=== PATIENT | female | born 1990 | race African-American/Black ===

== ENCOUNTER → 2017-05-24 | Outpatient (CLI) | payer SELFPAY ==
--- NOTE | 2017-05-24 10:07 | US ---
EXAMINATION TYPE: US OB <= 14 wk fetus DATE OF EXAM: 05/24/2017 COMPARISON: NONE CLINICAL HISTORY: Z36 Confirm dates. Confirm dates, 4, para 3, history of EXAM PERFORMED: Transabdominal (TA) EXAM MEASUREMENTS: GESTATIONAL AGE / DATING Physician Established: Not established yet Dates by LMP: (11 weeks/0 days) EDC: 12/13/2017 Dates by First Scan: This is 1st scan Dates by Current Scan for: (11 weeks/0 days) EDC: 12/13/2017 MATERNAL ANATOMY Uterus: 13.1 x 6.0 x 7.0cm, anteverted, heterogeneous Right Ovary: 3.4 x 2.3 x 2.6cm Left Ovary: 2.3 x 2.0 x 1.9cm Post CDS / Adnexa: wnl Presence of free fluid: no Presence of corpus luteal cyst: not seen at this time Presence of subchorionic bleed: no GESTATION / SURVEY CRL: 4.1cm (11 weeks/0 days) Yolk Sac (normal less than 6mm): not seen at this time Heart Rate: 162 bpm Rhythm: Normal IUP: Viable IUP Nuchal Translucency 10-14wks (normal less than 3mm): unable to obtain due to lie Date of LMP: 03/08/2017 Beta HcG (if available): Not available at time of exam IMPRESSION: Viable single IUP measuring 11 weeks 0 days with a heart rate of 162bpm and an estimated delivery mac e of 12/13/2017.
== END | disposition home or self-care (01) ==
LOC: RADUSWWP 09:24
PROVIDERS: ATTEND Obstetrics & Gynecology
DX: Z63.9 Problem related to primary support group, unspecified (principal); Z3A.11 11 weeks gestation of pregnancy
CPT/HCPCS: 76801

== ENCOUNTER → 2017-07-31 | Outpatient (CLI) | payer OTHER ==
--- NOTE | 2017-07-31 10:50 | US ---
EXAMINATION TYPE: US OB anatomy transabd DATE OF EXAM: 07/31/2017 COMPARISON: 05/24/2017 HISTORY: Large for dates O36.62X0 Anatomy TECHNIQUE: Transabdominal (TA) EXAM MEASUREMENTS: GESTATIONAL AGE / DATING Dates by First Scan: (20 weeks/5 days) EDC: 12/13/2017 Dates by Current Scan for: (20 weeks/4 days) EDC: 12/14/2017 SURVEY IUP: Single PLACENTA: Anterior PREVIA: No previa LORENA: 18.8 cm Normal CERVICAL LENGTH (transabdominal: norm > 3.0cm): 4.5 cm BIOMETRY PRESENTATION: Vertex LIE: Longitudinal BPD: 4.9 cm 20 weeks / 5 days HC: 17.9 cm 20 weeks / 2 days AC: 15.0 cm 20 weeks / 2 days FL: 3.5 cm 21 weeks / 0 days ESTIMATED WEIGHT IN GRAMS: 360.8 grams ESTIMATED WEIGHT IN LBS/OZ: 0 lbs. 13 oz. WEIGHT PERCENTAGE BASED ON ESTABLISHED DATE: 35.6 % HC/AC: 1.2 Normal FL/AC: 23.1 HEART RATE: 151 bpm RHYTHM: Normal ANATOMY SEEN (within normal limits): * Lateral Vent (< 1 cm) 0.6 cm * Cisterna Magna (< 1.1 cm) 0.3 cm * Nuchal Fold (< 0.6 cm) 0.4 cm * Cerebellum (varies with age) 2.0 cm Choroid Plexus (bilateral) Midline Falx Cavus Septi Pellucidi Four Chamber Heart Outflow tracts: LVOT/RVOT Stomach Situs Nose / Lips Diaphragm Kidneys (bilateral) Bladder Cord Insert Three Vessel Cord Longitudinal Spine Transverse Spine Arms (bilateral) Legs (bilateral) ANATOMY SEEN (does not appear within normal limits): ANATOMY NOT SEEN: Live single IUP measuring 20 weeks 4 days. IMPRESSION: Single live intrauterine with a sonographic age of 20 weeks and 4 days and estimated date o f delivery of 12/14/2017, concordant with menstrual age.
== END | disposition home or self-care (01) ==
LOC: RADUSWWP 09:28
PROVIDERS: ATTEND Obstetrics & Gynecology
DX: O36.62X0 Maternal care for excessive fetal growth, second trimester, not applicable or unspecified (principal); Z3A.20 20 weeks gestation of pregnancy
CPT/HCPCS: 76811

== ENCOUNTER 2017-10-24 11:09 | Outpatient (CLI) | payer OTHER ==
[2017-10-24 11:42] LABS: Glucose,Whole Blood 81 mg/dL (75-99)
[2017-10-24 12:05] VITALS: BP 115/61; PULSE 82; RESP 16; TEMP 98.2
--- NOTE | 2017-10-24 13:13 | US ---
EXAMINATION TYPE: US OB BPP wo non-stress DATE OF EXAM: 10/24/2017 COMPARISON: US 07/31/2017 CLINICAL HISTORY: Non-reassuring NST. EXAM PERFORMED: Transabdominal (TA) BPP PARAMETERS: PRESENTATION: Vertex LIE: Transverse with head maternal Left?? HEART RATE: 139 bpm RHYTHM: Normal LORENA: 12.4 cm DIAPHRAGM IMAGED: Yes BPP SCORIN. Breathin (1 episode of breathing of 30 second duration in 30 minutes of scanning time) 2. Movement: 2 (at least 3 discrete body movements in 30 minutes) 3. Tone: 2 (1 episode of active flexion/extension of limb) 4. LORENA: 2 (LORENA index > 5cm) TOTAL SCORE: 8 / 8 IMPRESSION: Biophysical profile score of 8/8. Amniotic fluid index is within normal limits. Heart rat e is also within normal limits measuring 139 8/m.
--- NOTE | 2017-10-25 05:56 | P.MSEPDOC ---
Presenting Problems - Arrival Data Date of Arrival on Unit: 10/24/17 Time of Arrival on Unit: 11:09 Mode of Transport: Portable - Complaint OB-Reason for Admission/Chief Complaint: NST Comment: Pt sent from office s/p non-reassuring NST. (Decel noted). HX of GBM. Dr. Sparks aware and telephone orders received prior to pt's arrival. Accucheck = 81. Medical History - Information : 4 Para: 3 Term: 3 : 0 Abortions: Spontaneous or Elective: 0 Number of Living Children: 3 - Gestational Age Gestational Age by MATTHEW (wks/days): 32 Weeks and 6 Days - History Complications: GDM Review of Systems - Review of Systems Constitutional: No problems Breast: No problems ENT: No problems Cardiovascular: No problems Respiratory: No problems Gastrointestinal: No problems Genitourinary: No problems Musculoskeletal: No problems Neurological: No problems Skin: No problems Vital Signs - Temperature Temperature: 98.2 F Temperature Source: Oral - Pulse Right Brachial Pulse Rate: 82 Pulse Assessment Method: Automatic Cuff - Respirations Respiratory Rate: 16 Oxygen Delivery Method: Room Air - Blood Pressure Right Arm Blood Pressure: 115/61 Blood Pressure Mean: 79 Blood Pressure Source: Automatic Cuff Medical Screen Scoring (Pre) - Cervical Exam Dilation: Exam Deferred Effacement: Exam Deferred - Uterine Contractions Frequency: > 5 minutes apart = 1 Duration: N/A Intensity: N/A - Maternal Vital Signs Maternal Temperature: N/A Maternal Blood Pressure: N/A Signs of Preeclampsia: N/A Maternal Respirations: N/A - Pain Assessment Pain Scale Used: Numeric (1 - 10) Pain Intensity: 0 - Maternal Trauma Maternal Trauma: N/A - Assessment Baseline FHR: 150 Heart Rate - NICHD Category: Category III (Abnormal) = 12 NST: Non-reactive = 3 - Total Score Total Score (Pre): 16 - Level of Risk Level of Risk: High (10+) Physician Notification (Pre) - Physician Notified Physician Notified Date: 10/24/17 I agree with the RN Medical Screening Exam: Yes Risk & Benefit of care provided described in d/c instruction: Yes Diagnosis: RELATED CONDITIONS, UNSPECIFIED, THIRD TRIMESTER
== END 2017-10-24 11:42 | disposition home or self-care (01) ==
LOC: FBPOP 11:09
PROVIDERS: ATTEND Obstetrics & Gynecology
DX: O26.93 Pregnancy related conditions, unspecified, third trimester (principal); Z3A.32 32 weeks gestation of pregnancy
CPT/HCPCS: 59025; 76819; G0463; 99213

== ENCOUNTER 2017-10-25 00:01 | Outpatient (CLI) | payer OTHER ==
[2017-10-25 01:58] VITALS: BP 127/67; PULSE 92; RESP 18; TEMP 96.3
--- NOTE | 2017-10-25 05:50 | P.MSEPDOC ---
Presenting Problems - Arrival Data Date of Arrival on Unit: 10/25/17 Time of Arrival on Unit: 00:00 Mode of Transport: Ambulatory - Complaint OB-Reason for Admission/Chief Complaint: Decreased Movement Medical History - Information : 4 Para: 3 Term: 3 : 0 Abortions: Spontaneous or Elective: 0 Number of Living Children: 3 - Gestational Age Gestational Age by MATTHEW (wks/days): 33 Weeks and 0 Days - History Complications: Prior , Smoker Review of Systems - Review of Systems Constitutional: No problems Breast: No problems ENT: No problems Cardiovascular: No problems Respiratory: No problems Gastrointestinal: No problems Genitourinary: No problems Musculoskeletal: No problems Neurological: No problems Skin: No problems Vital Signs - Temperature Temperature: 96.3 F Temperature Source: Temporal Artery Scan - Pulse Right Brachial Pulse Rate: 92 Pulse Assessment Method: Automatic Cuff - Respirations Respiratory Rate: 18 Oxygen Delivery Method: Room Air O2 Sat by Pulse Oximetry: 99 - Blood Pressure Right Arm Blood Pressure: 127/67 Blood Pressure Mean: 87 Blood Pressure Source: Automatic Cuff Medical Screen Scoring (Pre) - Cervical Exam Dilation: Exam Deferred Effacement: Exam Deferred Membranes: Intact - Uterine Contractions Frequency: N/A Duration: N/A Intensity: N/A - Maternal Vital Signs Maternal Temperature: N/A Maternal Blood Pressure: N/A Signs of Preeclampsia: N/A Maternal Respirations: N/A - Pain Assessment Pain Scale Used: Numeric (1 - 10) Pain Intensity: 0 - Assessment Baseline FHR: 140 NST: Non-reactive = 3 Position: N/A Station: N/A - Total Score Total Score (Pre): 3 - Level of Risk Level of Risk: Low (0-5) Physician Notification (Pre) - Physician Notified Physician Notified Date: 10/25/17 Physician Notified Time: 01:08 Physician/Practitioner Notifed:: Dr. Sparks Spoke With: Dr. Sparks New Order Received: Yes - Notification Comment Comment: Dr. Sparks called, given report of pt c/o of decreased FM. Movement noted audibly/visuably. NR NST after [address] Sparks reviewed strip. Orders recieved to keep pt in triage and observe until am. pt may eat and to insert Heplock IV I agree with the RN Medical Screening Exam: Yes Risk & Benefit of care provided described in d/c instruction: Yes Diagnosis: DECREASED MOVEMENTS, UNSP TRIMESTER, UNSP
== END 2017-10-25 05:40 | disposition home or self-care (01) ==
LOC: FBPOP 00:01
PROVIDERS: ATTEND Obstetrics & Gynecology
DX: O36.8130 Decreased fetal movements, third trimester, not applicable or unspecified (principal); O99.333 Smoking (tobacco) complicating pregnancy, third trimester; Z3A.33 33 weeks gestation of pregnancy
CPT/HCPCS: 59025; G0463; 99213

== ENCOUNTER 2017-11-22 09:54 | Outpatient (CLI) | payer MEDICARE, OTHER ==
[2017-11-22 10:23] LABS: Glucose,Whole Blood 90 mg/dL (75-99)
--- NOTE | 2017-11-22 11:48 | US ---
EXAMINATION TYPE: US OB >= 14 wk fetus third trimester DATE OF EXAM: 11/22/2017 COMPARISON: Most recent ultrasound July 31, 2017 CLINICAL HISTORY: Decel in FHT Deceleration in FHT, gestational diabetes TECHNIQUE: Transabdominal (TA) GESTATIONAL AGE / DATING Physician Established: (37 weeks/0 days) EDC: 12/13/17 Dates by LMP: LMP unknown Dates by First Scan: (37 weeks/0 days) EDC: 12/13/17 Dates by Current Scan: (36 weeks/5 days) EDC: 12/15/17 SURVEY IUP: Single PLACENTA: Anterior PREVIA: No Previa LORENA: 9.5 cm Normal CERVICAL LENGTH (transabdominal: norm > 3.0cm): 3.8 cm BIOMETRY PRESENTATION: Vertex LIE: Longitudinal BPD: 9.0 cm 36 weeks / 3 days HC: 33.1 cm 37 weeks / 5 days AC: 33.0 cm 37 weeks / 0 days FL: 7.2 cm 36 weeks / 6 days ESTIMATED WEIGHT IN GRAMS: 3077 grams ESTIMATED WEIGHT IN LBS/OZ: 6 lbs. 13 oz. WEIGHT PERCENTAGE BASED ON ESTABLISHED DATES: 55.1% HC/AC: 1.00 Normal FL/AC: 21.79 Normal HEART RATE: 133 bpm RHYTHM: Normal Single viable IUP 36wks/5days with MATTHEW of 12/15/17 Single live intrauterine gestation is redemonstrated. Normal cephalad presentation is seen. Cervix is not effaced. Amniotic fluid index is lower limits of normal. biometry measurements are congrue nt and felt within normal limits. IMPRESSION: As above
--- NOTE | 2017-11-22 11:49 | US ---
EXAMINATION TYPE: US OB BPP wo non-stress DATE OF EXAM: 11/22/2017 COMPARISON: Prior study October 24, 2017 CLINICAL HISTORY: FHT Decel. Deceleration in FHT, gestational diabetes EXAM PERFORMED: Transabdominal (TA) BPP PARAMETERS: PRESENTATION: Vertex LIE: Longitudinal?? HEART RATE: 135 bpm RHYTHM: Normal LORENA: 9.9cm DIAPHRAGM IMAGED: yes BPP SCORIN. Breathin (1 episode of breathing of 30 second duration in 30 minutes of scanning time) 2. Movement: 2 (at least 3 discrete body movements in 30 minutes) 3. Tone: 2 (1 episode of active flexion/extension of limb) 4. LORENA: 2 (LORENA index > 5cm) TOTAL SCORE: 8 / 8 Biophysical profile scored within normal limits during real-time scanning.
[2017-11-22 13:13] VITALS: BP 127/75; PULSE 86; RESP 16; TEMP 95.7
--- NOTE | 2017-11-22 16:38 | P.MSEPDOC ---
Presenting Problems - Arrival Data Date of Arrival on Unit: 11/22/17 Time of Arrival on Unit: 09:55 Mode of Transport: Ambulatory - Complaint OB-Reason for Admission/Chief Complaint: NST Medical History - Information : 4 Para: 3 Term: 3 : 0 Abortions: Spontaneous or Elective: 0 Number of Living Children: 3 - Gestational Age Gestational Age by MATTHEW (wks/days): 37 Weeks and 0 Days - History Complications: GDM, Prior Review of Systems - Review of Systems Constitutional: No problems Breast: No problems ENT: No problems Cardiovascular: No problems Respiratory: No problems Gastrointestinal: No problems Genitourinary: No problems Musculoskeletal: No problems Neurological: No problems Skin: No problems Vital Signs - Temperature Temperature: 95.7 F Temperature Source: Tympanic - Pulse Right Brachial Pulse Rate: 86 Pulse Assessment Method: Automatic Cuff - Respirations Respiratory Rate: 16 Oxygen Delivery Method: Room Air - Blood Pressure Right Arm Blood Pressure: 127/75 Blood Pressure Mean: 92 Blood Pressure Source: Automatic Cuff Medical Screen Scoring (Pre) - Cervical Exam Dilation: Exam Deferred Membranes: Intact - Uterine Contractions Frequency: N/A Duration: N/A Intensity: N/A - Maternal Vital Signs Maternal Temperature: N/A Maternal Blood Pressure: N/A Signs of Preeclampsia: N/A Maternal Respirations: N/A - Pain Assessment Pain Scale Used: Numeric (1 - 10) Pain Intensity: 0 Pain Management Goal: 0 - Assessment Baseline FHR: 135 Heart Rate - NICHD Category: Category I (Normal) = 0 NST: Reactive Position: N/A Station: N/A - Total Score Total Score (Pre): 0 - Level of Risk Level of Risk: N/A Physician Notification (Pre) - Physician Notified Physician Notified Date: 11/22/17 Physician Notified Time: 11:57 Physician/Practitioner Notifed:: Dr. Sparks Spoke With: Dr. Sparks New Order Received: Yes - Notification Comment Comment: d/c home Disposition - Disposition OB Disposition: Discharge to home Discharge Date: 11/22/17 Discharge Time: 10:05 I agree with the RN Medical Screening Exam: Yes Risk & Benefit of care provided described in d/c instruction: Yes Diagnosis: RELATED CONDITIONS, UNSPECIFIED, THIRD TRIMESTER
== END 2017-11-22 12:05 | disposition home or self-care (01) ==
LOC: FBPOP 09:54
PROVIDERS: ATTEND Obstetrics & Gynecology
DX: O26.93 Pregnancy related conditions, unspecified, third trimester (principal); Z3A.37 37 weeks gestation of pregnancy
CPT/HCPCS: 59025; 84112; 76805; 76819; G0463; 99213

== ENCOUNTER 2017-11-22 23:15 | Outpatient (CLI) | payer MEDICARE, OTHER ==
[2017-11-23 00:18] VITALS: BP 120/65; PULSE 102; RESP 18; TEMP 96.7
--- NOTE | 2017-11-23 08:43 | P.MSEPDOC ---
Presenting Problems - Arrival Data Date of Arrival on Unit: 11/22/17 Time of Arrival on Unit: 23:15 Mode of Transport: Wheelchair - Complaint OB-Reason for Admission/Chief Complaint: Rule Out SROM Comment: pt thought her water broke around 5 when she went to [facility], no leaking since Medical History - Information : 4 Para: 3 Term: 3 : 0 Abortions: Spontaneous or Elective: 0 Number of Living Children: 3 - Gestational Age Gestational Age by MATTHEW (wks/days): 37 Weeks and 1 Days - History Complications: GDM, Prior , Smoker Review of Systems - Review of Systems Constitutional: No problems Breast: No problems ENT: No problems Cardiovascular: No problems Respiratory: No problems Gastrointestinal: No problems Genitourinary: No problems Musculoskeletal: No problems Neurological: No problems Skin: No problems Vital Signs - Temperature Temperature: 96.7 F Temperature Source: Temporal Artery Scan - Pulse Right Supine Brachial Pulse Rate: 102 Pulse Assessment Method: Automatic Cuff - Respirations Respiratory Rate: 18 Oxygen Delivery Method: Room Air O2 Sat by Pulse Oximetry: 96 - Blood Pressure Right Arm Supine Blood Pressure: 120/65 Blood Pressure Mean: 83 Blood Pressure Source: Automatic Cuff Medical Screen Scoring (Pre) - Cervical Exam Dilation: 0 cm = 0 Membranes: Intact - Uterine Contractions Frequency: > 5 minutes apart = 1 Duration: > 40 seconds = 2 - Maternal Vital Signs Maternal Temperature: N/A Maternal Blood Pressure: N/A Signs of Preeclampsia: N/A - Pain Assessment Pain Scale Used: Numeric (1 - 10) Pain Intensity: 0 Pain Behavior: None Exhibited - Maternal Trauma Maternal Trauma: N/A - Assessment Baseline FHR: 145 Heart Rate - NICHD Category: Category I (Normal) = 0 NST: Reactive Position: N/A - Total Score Total Score (Pre): 3 - Level of Risk Level of Risk: Low (0-5) Physician Notification (Pre) - Physician Notified Physician Notified Date: 11/22/17 Physician Notified Time: 23:50 Physician/Practitioner Notifed:: Dr Gandara Spoke With: Dr Gandara New Order Received: Yes - Notification Comment Comment: Reviewed amnisure and reviewed FHR monitoring strip, in department for delivery of another patient. Ok not to perform CBG and instruct pt not to eat if she thinks her water breaks again due to being a scheduled C/S Disposition - Disposition OB Disposition: Discharge to home Transferred to:: Home Discharge Date: 11/23/17 Discharge Time: 00:10 I agree with the RN Medical Screening Exam: Yes Risk & Benefit of care provided described in d/c instruction: Yes Diagnosis: RELATED CONDITIONS, UNSPECIFIED, THIRD TRIMESTER
== END 2017-11-23 00:10 | disposition home or self-care (01) ==
LOC: FBPOP 23:15
PROVIDERS: ATTEND Obstetrics & Gynecology
DX: O26.93 Pregnancy related conditions, unspecified, third trimester (principal); Z3A.37 37 weeks gestation of pregnancy
CPT/HCPCS: 59025; 84112; G0463; 99213

== ENCOUNTER 2017-12-09 06:15 | Inpatient (IN) | payer MEDICARE, OTHER ==
[2017-12-06 13:36] VITALS: BMI 48.3
--- NOTE | 2017-12-08 12:51 | P.HPOB ---
History of Present Illness H&P Date: 12/08/17 Chief Complaint: Repeat C/S and tubal ligation. This patient is a pleasant 27 yr female EDC 12/13/2017 estimated gestational age 39 and 3/7 weeks who presents for repeat section and also requesting permanent sterilization. has been complicated by gestational diabetes with some compliance issues with glucose monitoring. She has been followed by [facility] for this, but often does not check her blood glucoses and also was recommended to start insulin/medication but did not. She has been followed closely with NSTs/BPPs and serial ultrasounds. She now presents for repeat C/S and also requesting permanent sterilization. Review of Systems Gastrointestinal: Reports heartburn Genitourinary: Reports Menstruation: Reports amenorrhea Past Medical History Past Medical History: Asthma Additional Past Medical History / Comment(s): Gestational diabetes History of Any Multi-Drug Resistant Organisms: MRSA Date of last positivie culture/infection: 2009/MRSA MDRO Source:: face Past Surgical History: Section, Tonsillectomy Past Anesthesia/Blood Transfusion Reactions: No Reported Reaction Smoking Status: Current every day smoker Past Alcohol Use History: None Reported Past Drug Use History: None Reported - Past Family History Mother Family Medical History: No Reported History Medications and Allergies Home Medications Medication Instructions Recorded Confirmed Type Pnv No.95/Ferrous Fum/Folic AC 1 each PO DAILY 11/22/17 12/06/17 History [ Multivitamin Tablet] Allergies Allergy/AdvReac Type Severity Reaction Status Date / Time No Known Allergies Allergy Verified 12/06/17 13:30 Exam - OBG Physical Exam Abdomen: bowel sounds normal, no diffuse tenderness, no bruit present, no guarding noted, no hepatomegaly, no splenomegaly, no mass Vagina: normal moisture, no discharge Cervix: no lesion, no discharge Uterus: enlarged (Fundal height is 43 cm.) Results blood work: O positive, Rubella Immune, [id number] negative, Glucola was 132 with abnormal 3hr GTT. Assessment and Plan Assessment: This is a pleasant 27 yr female who is presenting for repeat C/S and requests permanent sterilization. Plan is repeat section and bilateral partial salpingectomy. She understands that tubal ligation is permanent, but does have a failure rate of about 10/999 procedures done. She understands the risks of surgery including infection, bleeding, possible injury to bowel/bladder/vessels/other organs. She understands the risks of DVT/PE. All of the patients questions were answered and a written consent was obtained. (1) Previous delivery affecting Status: Acute Code(s): O34.219 - MATERNAL CARE FOR UNSP TYPE SCAR FROM PREVIOUS DEL SNOMED Code(s): 779219272 (2) Gestational diabetes mellitus (GDM) Status: Acute Code(s): O24.419 - GESTATIONAL DIABETES MELLITUS IN , UNSP CONTROL SNOMED Code(s): 09181718 (3) Family planning Status: Acute Code(s): Z30.09 - ENCOUNTER FOR OTH GENERAL CNSL AND ADVICE ON CONTRACEPTION SNOMED Code(s): 589604507 (4) Non compliance with medical treatment Status: Acute Code(s): Z91.19 - PATIENT'S NONCOMPLIANCE W OTH MEDICAL TREATMENT AND REGIMEN SNOMED Code(s): 0096737
[2017-12-09] MEDS ORDERED: LACTATED RINGERS 1,000 ML IV ONE (06:32)
[2017-12-09] MEDS ORDERED: CITRIC ACID-SODIUM CITRATE 15 ML CUP PO ONE (06:32)
[2017-12-09 06:51] LABS: Anisocytosis Slight; Basophils % (A) 0 %; Eosinophils # (A) 0.3 k/uL (0-0.7); Eosinophils % (A) 3 %; HGB 9.2 gm/dL (11.4-16.0); Hypochromasia Slight; Lymphocytes # (A) 2.4 k/uL (1.0-4.8); Lymphocytes % (A) 25 %; MCH 24.4 pg (25.0-35.0); MCHC 31.6 g/dL (31.0-37.0); MCV 77.4 fL (80.0-100.0); Mean Platelet Volume 6.6; Microcytosis Slight; Monocytes # (A) 0.4 k/uL (0-1.0); Monocytes % (A) 4 %; Neutrophils # (A) 6.3 k/uL (1.3-7.7); Neutrophils % (A) 66 %; Platelet Count 302 k/uL (150-450); RBC 3.75 m/uL (3.80-5.40); WBC 9.5 k/uL (3.8-10.6)
[2017-12-09 07:00] LABS: Glucose,Whole Blood 95 mg/dL (75-99)
[2017-12-09] MEDS ORDERED: ceFAZolin IN SWFI 2 GM/20 ML SYRINGE IVP ONE (07:15)
[2017-12-09] MEDS: LACTATED RINGERS 1,000 ML IV SCH ×5 (07:32→23:17)
[2017-12-09] MEDS ORDERED: PROPOFOL 10 MG/ML 20 ML VIAL IV ONE (07:48)
[2017-12-09] MEDS ORDERED: SUCCINYLCHOLINE CHLORIDE 100 MG/5 ML SYR IV ONE (07:48)
[2017-12-09] MEDS ORDERED: MORPHINE SULFATE (PF) 0.3 MG/0.3 ML SYR ONE (07:48)
[2017-12-09] MEDS ORDERED: OXYTOCIN 10 UNIT/ML 1 ML VIAL ONE (07:48)
[2017-12-09] MEDS ORDERED: KETOROLAC 30 MG/ML 1 ML VIAL ONE (07:48)
[2017-12-09] MEDS ORDERED: ONDANSETRON 4 MG/2 ML VIAL ONE (07:48)
[2017-12-09] MEDS ORDERED: fentaNYL (PF) 50 MCG/ML 2 ML AMP ONE (07:48)
[2017-12-09] MEDS ORDERED: ONDANSETRON 4 MG/2 ML VIAL IVP PRN (08:29)
[2017-12-09] MEDS ORDERED: SIMETHICONE 80 MG CHEWABLE PO PRN (08:29)
[2017-12-09] MEDS ORDERED: ZOLPIDEM 5 MG TAB PO PRN (08:29)
[2017-12-09] MEDS ORDERED: LANOLIN CREAM 5 GM TUBE TOPICAL PRN (08:29)
[2017-12-09] MEDS ORDERED: METOCLOPRAMIDE 5 MG/ML 2 ML VIAL IVP PRN (08:29)
[2017-12-09] MEDS ORDERED: diphenhydrAMINE 50 MG/ML 1 ML VIAL IVP PRN (08:29)
[2017-12-09] MEDS ORDERED: OXYTOCIN 20 UNITS/1000 ML NS 1,000 ML IV SCH (08:29)
[2017-12-09] MEDS ORDERED: NALOXONE 0.4 MG/ML 1 ML VIAL IV PRN (08:29)
[2017-12-09] MEDS ORDERED: ACETAMINOPHEN TAB 325 MG TAB PO PRN (08:29)
[2017-12-09] MEDS ORDERED: diphenhydrAMINE 25 MG CAP PO PRN (08:29)
[2017-12-09] MEDS ORDERED: HYDROmorphone PCA 5 MG/25 ML SYRINGE IV PRN (08:38)
--- NOTE | 2017-12-09 08:50 | P.OP ---
Date of Procedure: 12/09/17 Preoperative Diagnosis: #1: 39-3/7 weeks . #2: Previous section desires repeat. #3: Multi parity desires permanent sterilization. #4: Gestational diabetes Postoperative Diagnosis: Same Procedure(s) Performed: #1: Repeat low transverse section. #2: Bilateral partial salpingectomy Anesthesia: GETA (Ineffective spinal) Surgeon: Leroy Sparks Grants Assistant #1: Alem Garcia Estimated Blood Loss (ml): 800 Urine output (ml): 100 Pathology: other (Placenta and bilateral fallopian tube segments) Condition: stable Disposition: floor Indications for Procedure: Please see dictated H&P for intimate details of this patient's admission. Brief summary this is a pleasant 27-year-old 4 para 3 female 39-3/7 weeks gestation who is admitted for elective repeat section and also requesting permanent sterilization. Patient understands a tubal ligation is considered permanent although there is a failure rate of approximately 5 per thousand procedures done. She also understands surgery itself has risks including risks of infection, bleeding, possible injury bowel, bladder, vessels , and/or other organs. All the patient's questions are answered written consent is obtained. Operative Findings: This is a vigorous viable male Apgars 9 and 9 delivery time was 0812 hours. Description of Procedure: This patient has a Santos catheter placed to straight drain. She is subsequently taken to the operating room where she sat up and spinal anesthetic is administered without incident. She has abdominal prep and drape. This time I check her spinal level unfortunately is completely ineffective. At that time I talked to the patient we elected proceed with general anesthesia for delivery. She subsequently undergoes rapid sequence general endotracheal anesthesia. With an adequate level of anesthesia scalpels taken the previous Pfannenstiel skin incision is made. A second scalpel is taken down the fascia and the fascia scored with a knife. Fascial incision extended bilaterally using the Arevalo scissors. Fascia is then dissected off the rectus muscles sharply. Peritoneum was then identified and sharply. Peritoneal incision extended superior and inferior without difficulty. Bladder blade is then placed. Bladder peritoneum was developed sharply with Metzenbaum scissors. Scalpels and taken a low transverse uterine incision is then made. Using a hemostat I into the uterine cavity bluntly and there is loss of clear fluid. This incision is extended bluntly and the infant's head is guided to the incision. Note the infant's a face or brow presentation but this is converted to a straight vertex and delivered with fundal pressure. Also nares are bulb suctioned. There is no evidence of nuchal cord. Then deliver the rest this 's body. Is a vigorous viable male Apgars are 9 and 9 delivery time is 0812 hours. After delivery of the the umbilical cords doubly clamped and cut appears to be trivascular. Placenta is then manually extracted intact. Uterus is then externalized and uterine incision demarcated with Antunez clamps. Uterine incision then closed using 0 Vicryl running locked fashion 2 layers excellent hemostasis is noted. Entry my attention left fallopian tube approximately 4 cm from the cornual insertion a small window made to the mesial salpinx with Bovie cautery. Using 2-0 silk I doubly ligate a 1-2 cm segment of the tube. Cauterization is then done of the tubal ends. Excellent hemostasis is noted.With this done I turned my attention of the right fallopian tube and using a similar technique a 1-2 cm segment of the right fallopian tube is excised ligated and cauterized. This completed the uterus placed back into the abdomen. Final inspection of the tubal ends she'll be hemostatic. Uterine incision is hemostatic as well. The parietal peritoneum was then identified and closed in 0 Vicryl running fashion. Rectus muscle reapproximate 0 Vicryl interrupted fashion. Fascia is then closed using 0 PDS. Fascial incision is intact and hemostatic. Subcutaneous tissues and closed using 3-0 Vicryl. Skin is and closed using lokesh. Sterile dressing is then applied. All counts are correct 3. There are no complications. Patient is awakened from anesthesia and taken birthing suite in satisfactory condition.
[2017-12-09 12:50] LABS: Hemoglobin A1C 5.9 % (4.0-6.0)
[2017-12-09] MEDS: KETOROLAC 30 MG/ML 1 ML VIAL IVP PRN (18:49)
[2017-12-09] MEDS: SENNOSIDES-DOCUSATE SODIUM 1 EACH TAB PO SCH ×2 (19:37→20:07)
[2017-12-10] MEDS: KETOROLAC 30 MG/ML 1 ML VIAL IVP PRN ×2 (01:21→08:49)
[2017-12-10] MEDS: LACTATED RINGERS 1,000 ML IV SCH ×2 (04:25→04:47)
[2017-12-10 08:39] LABS: Anisocytosis Slight; Basophils % (A) 0 %; Eosinophils # (A) 0.2 k/uL (0-0.7); Eosinophils % (A) 3 %; HCT 25.6 % (34.0-46.0); HGB 8.1 gm/dL (11.4-16.0); Hypochromasia Moderate; Lymphocytes # (A) 1.5 k/uL (1.0-4.8); Lymphocytes % (A) 18 %; MCH 25.1 pg (25.0-35.0); MCHC 31.6 g/dL (31.0-37.0); MCV 79.4 fL (80.0-100.0); Mean Platelet Volume 6.9; Microcytosis Slight; Monocytes # (A) 0.3 k/uL (0-1.0); Monocytes % (A) 3 %; Neutrophils # (A) 6.1 k/uL (1.3-7.7); Neutrophils % (A) 75 %; Platelet Count 252 k/uL (150-450); RBC 3.22 m/uL (3.80-5.40); RDW 17.9 % (11.5-15.5); WBC 8.2 k/uL (3.8-10.6)
[2017-12-10] MEDS: SENNOSIDES-DOCUSATE SODIUM 1 EACH TAB PO SCH ×2 (08:49→19:56)
[2017-12-10] MEDS: IBUPROFEN 600 MG TAB PO PRN (16:36)
[2017-12-10] MEDS: Acetaminophen-Codeine 300-30mg TAB PO PRN (21:57)
[2017-12-11] MEDS: IBUPROFEN 600 MG TAB PO PRN ×3 (00:42→22:50)
[2017-12-11] MEDS: LACTATED RINGERS 1,000 ML IV SCH ×4 (02:39→03:16)
[2017-12-11] MEDS: Acetaminophen-Codeine 300-30mg TAB PO PRN ×2 (04:24→15:56)
--- NOTE | 2017-12-11 06:03 | P.PNOBGPC ---
Subjective - Subjective Patient reports: Reports appetite normal, Reports voiding normally, Reports pain well controlled, Reports ambulating normally : doing well Objective - Vital Signs Latest vital signs: Vital Signs Temp Pulse Resp BP Pulse Ox 12/11/17 00:00 98.8 F 71 16 98/54 12/10/17 16:00 98.3 F 88 18 109/55 100 12/10/17 12:00 98.1 F 72 18 102/74 98 12/10/17 08:00 98.6 F 82 18 109/61 98 Intake and Output 12/10/17 12/10/17 12/11/17 14:59 22:59 06:59 Intake Total 500 Output Total 400 Balance 100 Intake: IV 500 Invasive Line 1 500 Output: Urine 400 Other: # Voids 1 1 - Exam Lungs: bilateral: normal Chest: Normal S1, Normal S2 Extremities: Present: normal Abdomen: Present: normal appearance, soft. Absent: distention, tenderness Incision: Present: normal, dry, intact Uterus: Present: normal, firm - Labs Labs: Abnormal Lab Results - Last 24 Hours (Table) 12/10/17 Range/Units 08:20 RBC 3.22 L (3.80-5.40) m/uL Hgb 8.1 L (11.4-16.0) gm/dL Hct 25.6 L (34.0-46.0) % MCV 79.4 L (80.0-100.0) fL RDW 17.9 H (11.5-15.5) % Assessment and Plan Assessment: Post day #2. Patient is resting without complaints. Vital signs are stable and she is afebrile. Uterus is firm nontender and her incision is intact and dry. Hemoglobin yesterday was 8 however preoperative was 9 which is consistent with her chronic anemia. I am going to start her on some chromogen. Plan today is to continue routine postoperative care most likely discharge home tomorrow. (1) Previous delivery affecting Current Visit: Yes Status: Acute Code(s): O34.219 - MATERNAL CARE FOR UNSP TYPE SCAR FROM PREVIOUS DEL SNOMED Code(s): 285772750 (2) Gestational diabetes mellitus (GDM) Current Visit: Yes Status: Acute Code(s): O24.419 - GESTATIONAL DIABETES MELLITUS IN , UNSP CONTROL SNOMED Code(s): 80754249 (3) Family planning Current Visit: Yes Status: Acute Code(s): Z30.09 - ENCOUNTER FOR OTH GENERAL CNSL AND ADVICE ON CONTRACEPTION SNOMED Code(s): 514721185 (4) Non compliance with medical treatment Current Visit: Yes Status: Acute Code(s): Z91.19 - PATIENT'S NONCOMPLIANCE W OTH MEDICAL TREATMENT AND REGIMEN SNOMED Code(s): 1004757 (5) Chronic anemia Current Visit: Yes Status: Acute Code(s): D64.9 - ANEMIA, UNSPECIFIED SNOMED Code(s): 356621163
[2017-12-11] MEDS: SENNOSIDES-DOCUSATE SODIUM 1 EACH TAB PO SCH ×2 (08:37→20:31)
[2017-12-11] MEDS: IRON AG/C/B12/CA/SUC.ACID/STOM 1 EACH TAB PO SCH (16:00)
[2017-12-12] MEDS: Acetaminophen-Codeine 300-30mg TAB PO PRN ×2 (02:01→13:07)
--- NOTE | 2017-12-12 06:52 | P.PNOBGPC ---
Subjective - Subjective Patient reports: Reports appetite normal, Reports voiding normally, Reports pain well controlled, Reports ambulating normally : doing well Objective - Vital Signs Latest vital signs: Vital Signs Temp Pulse Resp BP Pulse Ox 12/12/17 00:00 98 F 79 15 126/80 12/11/17 16:00 98 F 84 16 116/82 100 12/11/17 08:00 98.2 F 88 16 131/90 98 - Exam Lungs: bilateral: normal Chest: Normal S1, Normal S2 Extremities: Present: normal Abdomen: Present: normal appearance, soft. Absent: distention, tenderness Incision: Present: normal, dry, intact Uterus: Present: normal, firm Assessment and Plan Assessment: Post operative day #3. Patient is resting without complaints and wishes to go home. Vital signs are stable she is afebrile. Uterus is firm nontender and her incision is intact and dry. Patient's tolerating regular diet, urinating, ambulating without difficulty. My impression this is a normal postoperative course. Patient does have chronic anemia but is on iron supplements. Plan is discharge home today and follow up with me in 1 week. (1) Previous delivery affecting Current Visit: Yes Status: Acute Code(s): O34.219 - MATERNAL CARE FOR UNSP TYPE SCAR FROM PREVIOUS DEL SNOMED Code(s): 650466845 (2) Gestational diabetes mellitus (GDM) Current Visit: Yes Status: Acute Code(s): O24.419 - GESTATIONAL DIABETES MELLITUS IN , UNSP CONTROL SNOMED Code(s): 24797982 (3) Family planning Current Visit: Yes Status: Acute Code(s): Z30.09 - ENCOUNTER FOR OTH GENERAL CNSL AND ADVICE ON CONTRACEPTION SNOMED Code(s): 230475190 (4) Non compliance with medical treatment Current Visit: Yes Status: Acute Code(s): Z91.19 - PATIENT'S NONCOMPLIANCE W OTH MEDICAL TREATMENT AND REGIMEN SNOMED Code(s): 6104844 (5) Chronic anemia Current Visit: Yes Status: Acute Code(s): D64.9 - ANEMIA, UNSPECIFIED SNOMED Code(s): 404439587
--- NOTE | 2017-12-12 07:01 | P.DS ---
Providers Date of admission: 12/09/17 06:15 Expected date of discharge: 12/12/17 Attending physician: Leroy Sparks Primary care physician: Steffen Donahue - Discharge Diagnosis(es) (1) Previous delivery affecting Current Visit: Yes Status: Acute (2) Gestational diabetes mellitus (GDM) Current Visit: Yes Status: Acute (3) Family planning Current Visit: Yes Status: Acute (4) Non compliance with medical treatment Current Visit: Yes Status: Acute (5) Chronic anemia Current Visit: Yes Status: Acute Hospital Course: Please see dictated H&P for intimate details of this patient's admission. Brief summary this is a pleasant 27-year-old 4 para 3 female 39-3/7 weeks gestation is admitted for elective repeat section and tubal ligation. Patient undergoes above-named surgery for viable male . Please see dictated operative note. Postoperative patient does well and on postoperative 3 felt be stable for discharge home follow up with me in 1 week. Procedures: Repeat low transverse section and bilateral partial salpingectomy. Patient Condition at Discharge: Good Plan - Discharge Summary Discharge Rx Participant: Yes New Discharge Prescriptions: New Acetaminophen-Codeine 300-30mg [Tylenol w/codeine #3] 2 each PO Q4HR PRN #30 tab PRN Reason: MODERATE Pain Ibuprofen [Motrin] 600 mg PO Q6HR PRN #40 tab PRN Reason: Mild Pain Or Fever >= 100.5 Iron Ag/C/B12/Ca/Suc.acid/Stom [Chromagen LF] 1 each PO DAILY #30 tab No Action Pnv No.95/Ferrous Fum/Folic AC [ Multivitamin Tablet] 1 each PO DAILY metFORMIN HCL [Glucophage] 500 mg PO BID Discharge Medication List Pnv No.95/Ferrous Fum/Folic AC [ Multivitamin Tablet] 1 each PO DAILY [History] metFORMIN HCL [Glucophage] 500 mg PO BID 12/09/17 [History] Acetaminophen-Codeine 300-30mg [Tylenol w/codeine #3] 2 each PO Q4HR PRN #30 tab 12/12/17 [Rx] Ibuprofen [Motrin] 600 mg PO Q6HR PRN #40 tab 12/12/17 [Rx] Iron Ag/C/B12/Ca/Suc.acid/Stom [Chromagen LF] 1 each PO DAILY #30 tab 12/12/17 [ Rx] Follow up Appointment(s)/Referral(s): Leroy Sparks MD [STAFF PHYSICIAN] - 12/19/17 1:30 pm (Patient also has a visit on January 21 at 9:15 AM.) Patient Instructions/Handouts: (DC) Activity/Diet/Wound Care/Special Instructions: No strenuous activity or heavy lifting for 6 weeks. No intercourse or anything per vagina for 6 weeks. Please call if any fever, chills, excessive vaginal bleeding, and/or abdominal pain. Discharge Disposition: HOME SELF-CARE
[2017-12-12 08:11] VITALS: BP 125/75; PULSE 65; RESP 16; TEMP 98
[2017-12-12] MEDS: IBUPROFEN 600 MG TAB PO PRN (10:00)
[2017-12-12] MEDS: SENNOSIDES-DOCUSATE SODIUM 1 EACH TAB PO SCH (10:00)
[2017-12-12] MEDS: IRON AG/C/B12/CA/SUC.ACID/STOM 1 EACH TAB PO SCH (13:30)
== END 2017-12-12 13:05 | disposition home or self-care (01) | DRG 766 ==
LOC: 4FBP 06:15
PROVIDERS: ADMIT Obstetrics & Gynecology; ATTEND Obstetrics & Gynecology
PROC: 0UB70ZZ Excision of Bilateral Fallopian Tubes, Open Approach (ICD-10-PCS; 2017-12-09)
PROC: 10D00Z1 Extraction of Products of Conception, Low, Open Approach (ICD-10-PCS; principal; 2017-12-09 08:00)
DX: O34.211 Maternal care for low transverse scar from previous cesarean delivery (principal); O24.429 Gestational diabetes mellitus in childbirth, unspecified control; O99.02 Anemia complicating childbirth; O99.334 Smoking (tobacco) complicating childbirth; O99.52 Diseases of the respiratory system complicating childbirth; J45.909 Unspecified asthma, uncomplicated; F17.200 Nicotine dependence, unspecified, uncomplicated; Z37.0 Single live birth; Z30.2 Encounter for sterilization; Z3A.39 39 weeks gestation of pregnancy; Z91.19 Patient's noncompliance with other medical treatment and regimen; Z86.14 Personal history of Methicillin resistant Staphylococcus aureus infection
CPT/HCPCS: 83036; 85025; 86850; 86900; 86901; 88302; 88307

== ENCOUNTER 2017-12-17 13:57 | Emergency (ER) | payer MEDICARE, OTHER ==
--- NOTE | 2017-12-17 14:18 | ED ---
Arrhythmia/Palpitations HPI - General Chief Complaint: Shortness of Breath Stated Complaint: sob Time Seen by Provider: 12/17/17 14:17 Source: patient Mode of arrival: ambulatory Limitations: no limitations - History of Present Illness Initial Comments: Patient presents with mild shortness of breath. Patient had 1 week ago, denies any competitions, however states her hemoglobin level was 8. States she was told she has iron deficiency. She states she's had only scant amount of vaginal bleeding when wiping procedure. Patient states she has a history of asthma, feels like she is currently having asthma exacerbation. Patient admits to mild chest tightness, shortness of breath, mild wheezing. Patient denies fevers, chills, URI symptoms, cough. Patient states she has mild swelling of legs bilaterally, but has been consistent throughout . She denies history of heart disease. - Related Data Home Medications Medication Instructions Recorded Confirmed Acetaminophen-Codeine 300-30mg 2 tab PO Q4HR PRN 12/17/17 12/17/17 [Tylenol w/codeine #3] Previous Rx's Medication Instructions Recorded Ibuprofen [Motrin] 600 mg PO Q6HR PRN #40 tab 12/12/17 Albuterol Inhaler [Ventolin Hfa 1 - 2 puff INHALATION Q4HR PRN #1 12/17/17 Inhaler] inhaler Allergies Allergy/AdvReac Type Severity Reaction Status Date / Time No Known Allergies Allergy Verified 12/17/17 14:24 Review of Systems ROS Statement: Those systems with pertinent positive or pertinent negative responses have been documented in the HPI. ROS Other: All systems not noted in ROS Statement are negative. Constitutional: Denies: fever, chills Eyes: Denies: vision change ENT: Denies: congestion Respiratory: Reports: dyspnea, wheezes. Denies: cough, hemoptysis, stridor Cardiovascular: Reports: dyspnea on exertion, orthopnea, edema. Denies: palpitations, syncope Endocrine: Denies: fatigue Gastrointestinal: Denies: abdominal pain, nausea, vomiting, diarrhea, constipation Genitourinary: Denies: urgency, dysuria, frequency, hematuria, discharge Musculoskeletal: Denies: back pain, joint swelling, arthralgia, myalgia Skin: Denies: rash, change in color Neurological: Denies: headache, confusion Hematological/Lymphatic: Denies: easy bleeding Past Medical History Past Medical History: Asthma Additional Past Medical History / Comment(s): Gestational diabetes History of Any Multi-Drug Resistant Organisms: MRSA Date of last positivie culture/infection: 2009/MRSA MDRO Source:: face Past Surgical History: Section, Tonsillectomy Past Anesthesia/Blood Transfusion Reactions: No Reported Reaction Past Psychological History: Depression Smoking Status: Current every day smoker Past Alcohol Use History: None Reported Past Drug Use History: None Reported - Past Family History Mother Family Medical History: No Reported History General Exam - General Exam Comments Initial Comments: Sitting up in bed. No acute distress. Conversing normally. Calm, pleasant. Limitations: no limitations General appearance: alert, in no apparent distress Head exam: Present: atraumatic, normocephalic Eye exam: Present: normal appearance, PERRL, EOMI ENT exam: Present: normal exam, normal oropharynx, mucous membranes moist Neck exam: Present: normal inspection Respiratory exam: Present: normal lung sounds bilaterally, other (Oxygen saturation 100% on room air.). Absent: respiratory distress, wheezes, rales, rhonchi, accessory muscle use, decreased breath sounds, prolonged expiratory Cardiovascular Exam: Present: regular rate, normal rhythm (Heart rate 51 on monitor) GI/Abdominal exam: Present: soft. Absent: distended, tenderness, guarding, rebound (Obese. Lower horizontal abdominal incision clean and dry intact, no drainage or surrounding erythema.) Extremities exam: Present: normal inspection. Absent: tenderness, pedal edema, joint swelling, calf tenderness Back exam: Present: normal inspection Neurological exam: Present: alert, oriented X3 Psychiatric exam: Present: normal affect, normal mood Skin exam: Present: warm, dry, intact, normal color. Absent: rash, cyanosis, diaphoretic, erythema, pallor Course Vital Signs 12/17/17 12/17/17 12/17/17 14:10 14:32 15:35 Temperature 98.2 F Pulse Rate 46 L 46 L 48 L Respiratory 18 16 Rate Blood Pressure 167/102 184/97 O2 Sat by Pulse 99 98 Oximetry 12/17/17 15:42 Temperature Pulse Rate 48 L Respiratory Rate Blood Pressure O2 Sat by Pulse Oximetry Medical Decision Making - Medical Decision Making Heart rate 51 at time of initial evaluation. Oxygen saturation 100% on room air. Although patient has recent surgery, doubt pulmonary embolism at this time. No leg swelling or calf tenderness appreciated. No tachycardia, no hypoxia. EKG sinus bradycardia, heart rate 42, no ST or T-wave changes appreciated. Bradycardia may be secondary to period. Hb 8.3, higher than previous, 8.1. MCV low. BNP elevated, no acute findings on CXR. UA shows blood, likely normal 2/2 vaginal spotting following Heart rate improved to 49 on the monitor. Patient remains 98% on room air. Vision updated without results, states she feels better, symptoms resolved following DuoNeb treatment. Patient feels comfortable going home. Patient understands need for primary care follow-up for chronic anemia, as well as follow-up with stage manager given shortness of breath, low heart rate, elevated BNP. Discussed need for echo of the heart, patient understands and agrees to follow up in one to 2 days. Referral given. Patient to return to ER immediately if new or worsening symptoms including increased shortness of breath , chest pains, lightheadedness, syncope. - Lab Data Result diagrams: 12/17/17 15:13 12/17/17 15:13 Lab Results 12/17/17 12/17/17 12/17/17 Range/Units 14:28 14:28 15:13 WBC (3.8-10.6) k/uL RBC (3.80-5.40) m/uL Hgb (11.4-16.0) gm/dL Hct (34.0-46.0) % MCV (80.0-100.0) fL MCH (25.0-35.0) pg MCHC (31.0-37.0) g/dL RDW (11.5-15.5) % Plt Count (150-450) k/uL Neutrophils % % Lymphocytes % % Monocytes % % Eosinophils % % Basophils % % Neutrophils # (1.3-7.7) k/uL Lymphocytes # (1.0-4.8) k/uL Monocytes # (0-1.0) k/uL Eosinophils # (0-0.7) k/uL Basophils # (0-0.2) k/uL Hypochromasia Anisocytosis Microcytosis PT (9.0-12.0) sec INR (<1.2) APTT (22.0-30.0) sec Sodium (137-145) mmol/L Potassium (3.5-5.1) mmol/L Chloride (98-107) mmol/L Carbon Dioxide (22-30) mmol/L Anion Gap mmol/L BUN (7-17) mg/dL Creatinine (0.52-1.04) mg/dL Est GFR (CKD-EPI)AfAm (>60 ml/min/1.73 sqM) Est GFR (CKD-EPI)NonAf (>60 ml/min/1.73 sqM) Glucose (74-99) mg/dL Calcium (8.4-10.2) mg/dL Troponin I (0.000-0.034) ng/mL NT-Pro-B Natriuret Pep pg/mL Urine Color Light Red Urine Appearance Cloudy H (Clear) Urine pH 6.5 (5.0-8.0) Ur Specific [place] 1.016 (1.001-1.035) Urine Protein 2+ H (Negative) Urine Glucose (UA) Negative (Negative) Urine Ketones Negative (Negative) Urine Blood Large H (Negative) Urine Nitrite Negative (Negative) Urine Bilirubin Negative (Negative) Urine Urobilinogen 12.0 (<2.0) mg/dL Ur Leukocyte Esterase Moderate H (Negative) Urine RBC >182 H (0-5) /hpf Urine WBC 4 (0-5) /hpf Urine WBC Clumps Many H (None) /hpf Ur Squamous Epith Cells 8 H (0-4) /hpf Urine Bacteria Few H (None) /hpf Urine Mucus Occasional H (None) /hpf Urine HCG, Qual Not Detected (Not Detectd) Blood Type O Positive Blood Type Recheck No Antibody Screen NEGATIVE Spec Expiration Date 12/20/2017231212/17/17 12/17/17 12/17/17 Range/Units 15:13 15:13 15:13 WBC 7.9 (3.8-10.6) k/uL RBC 3.34 L (3.80-5.40) m/uL Hgb 8.3 L (11.4-16.0) gm/dL Hct 26.5 L (34.0-46.0) % MCV 79.2 L (80.0-100.0) fL MCH 25.0 (25.0-35.0) pg MCHC 31.5 (31.0-37.0) g/dL RDW 18.1 H (11.5-15.5) % Plt Count 354 (150-450) k/uL Neutrophils % 63 % Lymphocytes % 26 % Monocytes % 5 % Eosinophils % 3 % Basophils % 1 % Neutrophils # 5.0 (1.3-7.7) k/uL Lymphocytes # 2.0 (1.0-4.8) k/uL Monocytes # 0.4 (0-1.0) k/uL Eosinophils # 0.3 (0-0.7) k/uL Basophils # 0.0 (0-0.2) k/uL Hypochromasia Moderate Anisocytosis Slight Microcytosis Slight PT (9.0-12.0) sec INR (<1.2) APTT (22.0-30.0) sec Sodium 141 (137-145) mmol/L Potassium 4.2 (3.5-5.1) mmol/L Chloride 109 H (98-107) mmol/L Carbon Dioxide 20 L (22-30) mmol/L Anion Gap 12 mmol/L BUN 14 (7-17) mg/dL Creatinine 0.82 (0.52-1.04) mg/dL Est GFR (CKD-EPI)AfAm >90 (>60 ml/min/1.73 sqM) Est GFR (CKD-EPI)NonAf >90 (>60 ml/min/1.73 sqM) Glucose 88 (74-99) mg/dL Calcium 8.9 (8.4-10.2) mg/dL Troponin I (0.000-0.034) ng/mL NT-Pro-B Natriuret Pep 618 pg/mL Urine Color Urine Appearance (Clear) Urine pH (5.0-8.0) Ur Specific [place] (1.001-1.035) Urine Protein (Negative) Urine Glucose (UA) (Negative) Urine Ketones (Negative) Urine Blood (Negative) Urine Nitrite (Negative) Urine Bilirubin (Negative) Urine Urobilinogen (<2.0) mg/dL Ur Leukocyte Esterase (Negative) Urine RBC (0-5) /hpf Urine WBC (0-5) /hpf Urine WBC Clumps (None) /hpf Ur Squamous Epith Cells (0-4) /hpf Urine Bacteria (None) /hpf Urine Mucus (None) /hpf Urine HCG, Qual (Not Detectd) Blood Type Blood Type Recheck Antibody Screen Spec Expiration Date 12/17/17 12/17/17 Range/Units 15:13 15:13 WBC (3.8-10.6) k/uL RBC (3.80-5.40) m/uL Hgb (11.4-16.0) gm/dL Hct (34.0-46.0) % MCV (80.0-100.0) fL MCH (25.0-35.0) pg MCHC (31.0-37.0) g/dL RDW (11.5-15.5) % Plt Count (150-450) k/uL Neutrophils % % Lymphocytes % % Monocytes % % Eosinophils % % Basophils % % Neutrophils # (1.3-7.7) k/uL Lymphocytes # (1.0-4.8) k/uL Monocytes # (0-1.0) k/uL Eosinophils # (0-0.7) k/uL Basophils # (0-0.2) k/uL Hypochromasia Anisocytosis Microcytosis PT 10.8 (9.0-12.0) sec INR 1.1 (<1.2) APTT 23.3 (22.0-30.0) sec Sodium (137-145) mmol/L Potassium (3.5-5.1) mmol/L Chloride (98-107) mmol/L Carbon Dioxide (22-30) mmol/L Anion Gap mmol/L BUN (7-17) mg/dL Creatinine (0.52-1.04) mg/dL Est GFR (CKD-EPI)AfAm (>60 ml/min/1.73 sqM) Est GFR (CKD-EPI)NonAf (>60 ml/min/1.73 sqM) Glucose (74-99) mg/dL Calcium (8.4-10.2) mg/dL Troponin I <0.012 (0.000-0.034) ng/mL NT-Pro-B Natriuret Pep pg/mL Urine Color Urine Appearance (Clear) Urine pH (5.0-8.0) Ur Specific [place] (1.001-1.035) Urine Protein (Negative) Urine Glucose (UA) (Negative) Urine Ketones (Negative) Urine Blood (Negative) Urine Nitrite (Negative) Urine Bilirubin (Negative) Urine Urobilinogen (<2.0) mg/dL Ur Leukocyte Esterase (Negative) Urine RBC (0-5) /hpf Urine WBC (0-5) /hpf Urine WBC Clumps (None) /hpf Ur Squamous Epith Cells (0-4) /hpf Urine Bacteria (None) /hpf Urine Mucus (None) /hpf Urine HCG, Qual (Not Detectd) Blood Type Blood Type Recheck Antibody Screen Spec Expiration Date Disposition Clinical Impression: Asthma with exacerbation, Shortness of breath, Bradycardia Disposition: HOME SELF-CARE Condition: Good Instructions: Dyspnea (ED), Bradycardia (ED) Additional Instructions: Follow-up with her primary care physician for further workup of chronic anemia. Follow-up with stage manager regarding elevated BNP, low heart rate. Return to ER immediately if new or worsening symptoms including chest pain, worsening shortness of breath, lightheadedness, syncope. Prescriptions: Albuterol Inhaler [Ventolin Hfa Inhaler] 1 - 2 puff INHALATION Q4HR PRN #1 inhaler PRN Reason: Shortness Of Breath Is patient prescribed a controlled substance at d/c from ED?: No Referrals: Godfrey Bourne MD [Primary Care Provider] - 1-2 days [facility] [Provider Group] - 1-2 days
[2017-12-17 14:35] VITALS: RESP 16
[2017-12-17] MEDS ORDERED: IPRATROPIUM-ALBUTEROL 3 ML NEB INHALATION STA (14:44)
[2017-12-17 14:56] LABS: Appearance,Urine Cloudy (Clear); Bacteria,Urine Few /hpf; Bilirubin,Urine Negative (Negative); Blood,Urine Large (Negative); Color,Urine Light Red; Glucose,Urine (UA) Negative (Negative); Ketones,Urine Negative (Negative); Leukocyte Esterase,Urine Moderate (Negative); Mucus,Urine Occasional /hpf; Nitrite,Urine Negative (Negative); PH, Urine 6.5 (5.0-8.0); Protein,Urine 2+ (Negative); RBC,Urine >182 /hpf (0-5); Specific Gravity,Urine 1.016 (1.001-1.035); Squamous Epithelial Cell,Urine 8 /hpf (0-4); WBC,Urine 4 /hpf (0-5)
[2017-12-17] MEDS ORDERED: methylPREDNISolone SOD SUCCI 125 MG/2 ML VIAL IV ONE (15:00)
--- NOTE | 2017-12-17 15:10 | XR ---
EXAMINATION TYPE: XR chest 2V DATE OF EXAM: 12/17/2017 COMPARISON: NONE HISTORY: Chest pain TECHNIQUE: Frontal and lateral views of the chest are obtained. FINDINGS: There is no focal air space opacity. No evidence for pneumothorax. No pleural effusion. The cardiac silhouette size is within normal limits. The osseous structures are grossly intact. IMPRESSION: 1. No acute cardiopulmonary process.
[2017-12-17 15:31] LABS: Anisocytosis Slight; Basophils % (A) 1 %; Eosinophils # (A) 0.3 k/uL (0-0.7); Eosinophils % (A) 3 %; HCT 26.5 % (34.0-46.0); HGB 8.3 gm/dL (11.4-16.0); Hypochromasia Moderate; Lymphocytes % (A) 26 %; MCHC 31.5 g/dL (31.0-37.0); MCV 79.2 fL (80.0-100.0); Mean Platelet Volume 7.1; Microcytosis Slight; Monocytes # (A) 0.4 k/uL (0-1.0); Monocytes % (A) 5 %; Neutrophils % (A) 63 %; Platelet Count 354 k/uL (150-450); RBC 3.34 m/uL (3.80-5.40); RDW 18.1 % (11.5-15.5); WBC 7.9 k/uL (3.8-10.6)
[2017-12-17 15:38] LABS: INR 1.1 (<1.2); Partial Thromboplastin Time 23.3 sec (22.0-30.0); Prothrombin Time 10.8 sec (9.0-12.0)
[2017-12-17 15:39] LABS: Anion Gap 12 mmol/L; Blood Urea Nitrogen 14 mg/dL (7-17); Calcium 8.9 mg/dL (8.4-10.2); Carbon Dioxide 20 mmol/L (22-30); Chloride 109 mmol/L (98-107); Glucose 88 mg/dL (74-99); Potassium 4.2 mmol/L (3.5-5.1); Sodium 141 mmol/L (137-145)
[2017-12-17 16:56] VITALS: BP 195/97; PULSE 43; TEMP 98.4
== END 2017-12-17 16:58 | disposition home or self-care (01) ==
LOC: EC 13:57
DX: O99.53 Diseases of the respiratory system complicating the puerperium (principal); J45.901 Unspecified asthma with (acute) exacerbation; O90.89 Other complications of the puerperium, not elsewhere classified; R00.1 Bradycardia, unspecified; R79.89 Other specified abnormal findings of blood chemistry; O99.335 Smoking (tobacco) complicating the puerperium; F17.200 Nicotine dependence, unspecified, uncomplicated; Z86.14 Personal history of Methicillin resistant Staphylococcus aureus infection; Z98.890 Other specified postprocedural states
CPT/HCPCS: 36415; 94640; 93005; 86900; 86901; 83880; 80048; 84484; 85025; 85610; 85730; 86850; 81001; 81025; 71046; 99285; 96374; J2930

== ENCOUNTER 2018-08-16 20:09 | Emergency (ER) | payer MEDICARE, OTHER ==
[2018-08-16 20:18] VITALS: RESP 18
--- NOTE | 2018-08-16 20:30 | ED ---
URI HPI - General Chief Complaint: Upper Respiratory Infection Stated Complaint: congestion/vomiting Time Seen by Provider: 08/16/18 20:19 Source: patient Mode of arrival: ambulatory Limitations: no limitations - History of Present Illness Initial Comments: 28 female presents with upper story symptoms for last 2 days. Patient states it started at work with congestion fatigue and had one episode of vomiting. Patient now having a runny nose sore throat headache bodyaches questionable fever. Patient feels hot and cold. Patient taking DayQuil and NyQuil. Patient denies any wheezing or shortness of breath. MD Complaint: fever, cough, sore throat, rhinorrhea, nasal congestion, sinus pain Associated Symptoms: fever, chills, myalgias, headache, rhinorrhea, nasal congestion, sore throat - Related Data Home Medications Medication Instructions Recorded Confirmed Acetaminophen-Codeine 300-30mg 2 tab PO Q4HR PRN 12/17/17 12/17/17 [Tylenol w/codeine #3] Previous Rx's Medication Instructions Recorded Ibuprofen [Motrin] 600 mg PO Q6HR PRN #40 tab 12/12/17 Albuterol Inhaler [Ventolin Hfa 1 - 2 puff INHALATION Q4HR PRN #1 12/17/17 Inhaler] inhaler Amoxicillin 875 mg PO Q12HR #20 tablet 08/16/18 Allergies Allergy/AdvReac Type Severity Reaction Status Date / Time No Known Allergies Allergy Verified 12/17/17 14:24 Review of Systems ROS Statement: Those systems with pertinent positive or pertinent negative responses have been documented in the HPI. ROS Other: All systems not noted in ROS Statement are negative. Constitutional: Reports: fever, chills ENT: Reports: throat pain Endocrine: Reports: fatigue Past Medical History Past Medical History: Asthma Additional Past Medical History / Comment(s): Gestational diabetes History of Any Multi-Drug Resistant Organisms: MRSA Date of last positivie culture/infection: 2009/MRSA MDRO Source:: face Past Surgical History: Section, Tonsillectomy Past Anesthesia/Blood Transfusion Reactions: No Reported Reaction Past Psychological History: Depression Smoking Status: Current every day smoker Past Alcohol Use History: None Reported Past Drug Use History: None Reported - Past Family History Mother Family Medical History: No Reported History General Exam Limitations: no limitations General appearance: alert, in no apparent distress Eye exam: Present: normal appearance, PERRL, EOMI. Absent: scleral icterus, conjunctival injection, periorbital swelling ENT exam: Present: normal exam, mucous membranes moist, other (nasal drainage and swelling) Expanded Throat exam: normal inspection Respiratory exam: Present: normal lung sounds bilaterally. Absent: respiratory distress, wheezes, rales, rhonchi, stridor Cardiovascular Exam: Present: regular rate, normal rhythm, normal heart sounds. Absent: systolic murmur, diastolic murmur, rubs, gallop, clicks Course Vital Signs 08/16/18 20:13 Temperature 98.8 F Pulse Rate 95 Respiratory 18 Rate Blood Pressure 152/103 O2 Sat by Pulse 98 Oximetry Medical Decision Making - Medical Decision Making Reviewed influenza lab results negative for both a and B patient aware we will treat for sinus infection patient to be off work for 1-2 days. Patient to continue with decongestant ibuprofen nasal sprays and antihistamines. Patient to monitor blood pressure and follow up closely with her family doctor. - Lab Data Lab Results 08/16/18 Range/Units 20:40 Influenza Type A RNA Not Detected (Not Detectd) Influenza Type B (PCR) Not Detected (Not Detectd) Disposition Clinical Impression: Sinusitis, Hypertension Disposition: HOME SELF-CARE Condition: Good Instructions (If sedation given, give patient instructions): Upper Respiratory Infection (ED), Sinusitis (ED), Hypertension (ED) Prescriptions: Amoxicillin 875 mg PO Q12HR #20 tablet Is patient prescribed a controlled substance at d/c from ED?: No Referrals: Godfrey Bourne MD [Primary Care Provider] - 1-2 days Time of Disposition: 21:10
[2018-08-16] MEDS ORDERED: AMOXICILLIN 875 MG TAB PO STA (21:12)
[2018-08-16 21:57] VITALS: BP 170/89; PULSE 83; TEMP 98
== END 2018-08-16 21:57 | disposition home or self-care (01) ==
LOC: EC 20:09
DX: J32.9 Chronic sinusitis, unspecified (principal); I10 Essential (primary) hypertension; F17.200 Nicotine dependence, unspecified, uncomplicated; Z87.09 Personal history of other diseases of the respiratory system; Z86.14 Personal history of Methicillin resistant Staphylococcus aureus infection
CPT/HCPCS: 87502; 99283